=== PATIENT | male | born 1995 | race Caucasian/White ===

== ENCOUNTER 2020-05-21 09:46 | Outpatient (CLI) | payer BC ==
--- NOTE | 2020-05-21 10:39 | RAD ---
Exam:4 views right knee HISTORY: Chondromalacia COMPARISON: None FINDINGS: Joint effusion. No evidence of patellar dislocation. No fractures or malalignment Joint spaces are preserved IMPRESSION: No radiographic abnormality. If there is concern for internal derangement, consider MRI
== END 2020-05-21 09:47 | disposition home or self-care (01) ==
LOC: SCSRAD 09:46
PROVIDERS: ATTEND Family Medicine
DX: M94.261 Chondromalacia, right knee (principal)

== ENCOUNTER 2020-07-19 14:22 | Outpatient (CLI) | payer BC | END 2020-07-19 14:23 | disposition home or self-care (01) | LOC: BICMRI 14:22 | PROVIDERS: ATTEND Family Medicine | DX: M23.91 Unspecified internal derangement of right knee (principal); M25.561 Pain in right knee; S83.241A Other tear of medial meniscus, current injury, right knee, initial encounter ==

== ENCOUNTER 2021-04-14 09:57 | Outpatient (CLI) | payer BC | END 2021-04-14 09:58 | disposition home or self-care (01) | LOC: SCSRAD 09:57 | PROVIDERS: ATTEND Family Medicine | DX: M25.532 Pain in left wrist (principal) ==